=== PATIENT | female | born 1960 | race Two or more races ===

== ENCOUNTER 2018-04-15 07:29 | Day surgery (SDC) | payer BC ==
[2018-04-15] VITALS (8 sets, daily range): BP systolic 103–126; BP diastolic 63–71
[~2018-04-15] VITALS: Ht 165.1 cm; Wt 67.6 kg
[~2018-04-15 07:29] MED LIST: LR 1000ml 1,000 ML IVLG SCH
[2018-04-15] MEDS ORDERED: MULTIVITAMINS1 EAC2 ORAL (08:06)
[2018-04-15] MEDS ORDERED: VITAMIN D1000 UNI1 ORAL (08:06)
[2018-04-15] MEDS ORDERED: LR 1000ml 1,000 ML IVLG SCH (08:10)
--- NOTE | 2018-04-15 08:13 | Anethesia Preoperative Eval ---
Anesthesia Pre-op PMH/ROS General Date of Evaluation: Apr 15, 2018 Time of Evaluation: 08:12 Anesthesiologist: yunior ASA Score: ASA 2 Mallampati Score Class I : Soft palate, uvula, fauces, pillars visible Class II: Soft palate, uvula, fauces visible Class III: Soft palate, base of uvula visible Class IV: Only hard plate visible Mallampati Classification: Class II Surgeon: alvaro Diagnosis: colon screening Surgical Procedure: colonoscopy Anesthesia History: none Family History: no anesthesia problems Allergies: Coded Allergies: MORPHINE (Verified Adverse Reaction, Severe, 04/15/18) shivers/shaking Medications: see eMAR Patient NPO?: Yes Anesthesia Pre-op Phys. Exam Physician Exam Last Vital Signs Date Time Temp Pulse Resp B/P (MAP) Pulse Ox O2 Delivery O2 Flow Rate FiO2 04/15/18 08:07 97.9 66 16 126/71 99 Room Air Constitutional: NAD Neurologic: CN 2-12 intact Cardiovascular: RRR Respiratory: CTA Gastrointestinal: S/NT/ND Airway Exam Mallampati Score: Class II MO: full Neck: flexible TMD: 2fb Teeth: intact Anesthesia Pre-op A/P Risk Assessment & Plan Assessment: asa2 Plan: mac Status Change Before Surgery: No Pre-Antibiotics Drug: Alona Weeks MD Apr 15, 2018 08:13
[2018-04-15] MEDS ORDERED: fentaNYL 100 mcg/2 mL IV PRN (08:15)
[2018-04-15] MEDS ORDERED: Atropine Inj 1mg/10ml Syr IV PRN (08:15)
[2018-04-15] MEDS ORDERED: DiphenhydrAMINE 50mg/ml Inj IVP PRN (08:15)
[2018-04-15] MEDS ORDERED: Midazolam 2mg/2ml Inj IVP PRN (08:15)
--- NOTE | 2018-04-15 08:17 | Pre-Procedure Note/Attestation ---
Pre-Procedure Note/Attestation Complete Prior to Procedure Planned Procedure: not applicable Procedure Narrative: Colonoscopy, possible biopsy, polypectomy, hemostasis, submucosal injection Indications for Procedure Pre-Operative Diagnosis: cancer screening Attestation I attest that I discussed the nature of the procedure; its benefits; risks and complications; and alternatives (and the risks and benefits of such alternatives ), prior to the procedure, with the patient (or the patient's legal customer assistance representative). I attest that, if there was a reasonable possibility of needing a blood transfusion, the patient (or the patient's legal customer assistance representative) was given the [facility] standardized written summary, pursuant to the [place] Blood Safety Act ([place] Health and Safety Code # 1645, as amended). I attest that I re-evaluated the patient just prior to the surgery and that there has been no change in the patient's H&P, except as documented below: Maricarmen Holder MD Apr 15, 2018 08:17
[2018-04-15] MEDS ORDERED: Atropine Sulfate 0.4mg/ml inj ONE (09:00)
[2018-04-15] MEDS ORDERED: LR 1000ml ONE (09:00)
[2018-04-15] MEDS ORDERED: Propofol 200mg/20ml IV ONE (09:00)
[2018-04-15] MEDS ORDERED: Lidocaine 1% MPF 10mg/ml 5ml ONE (09:00)
--- NOTE | 2018-04-15 10:11 | Endoscopy Procedure Note ---
Endoscopy Procedure Note General Procedures Performed: colonoscopy Operative Findings/Diagnosis: polyps x 5, sigmoid diverticula Specimen: yes Pt Tolerated Procedure Well: Yes Estimated Blood Loss: minimal Anesthesia Anesthesiologist: Alona Nunn MD Anesthesia: moderate sedation Medications Medication Given: see anesthesia record Inserted Devices Implant(s) used?: No Quality Quality of Bowel Preparation: Excellent Did scope reach the cecum?: Yes Was there any complications?: No GI Core Measures 50 yrs or older w/o bx or poly: No 10yrs. F/U not recommended: No If not recommended, why?: Above average risk Maricarmen Holder MD Apr 15, 2018 10:11
--- NOTE | 2018-04-15 10:29 | Immediate Post-Op Evaluation ---
Immediate Post-Op Evalulation Immediate Post-Op Evalulation Procedure: colonoscopy w/ bx Date of Evaluation: Apr 15, 2018 Time of Evaluation: 10:27 IV Fluids: 400ml lr Blood Products: none Estimated Blood Loss: negligible Blood Pressure Systolic: 105 Blood Pressure Diastolic: 63 Pulse Rate: 71 Respiratory Rate: 18 O2 Sat by Pulse Oximetry: 100 Temperature (Fahrenheit): 97.8 Pain Score (1-10): 0 Nausea: No Vomiting: No Complications none Patient Status: awake, reacts, patent Hydration Status: adequate Drug: Alona Weeks MD Apr 15, 2018 10:29
--- NOTE | 2018-04-15 10:32 | 48 Hour Post Anesthesia Eval ---
Post Anesthesia Evaluation Procedure: colonoscopy w/ bx Date of Evaluation: Apr 15, 2018 Time of Evaluation: 10:29 Blood Pressure Systolic: 110 0: 65 Pulse Rate: 68 Respiratory Rate: 18 Temperature (Fahrenheit): 97.8 O2 Sat by Pulse Oximetry: 100 Airway: patent Nausea: No Vomiting: No Pain Intensity: 0 Hydration Status: adequate Cardiopulmonary Status: stable Mental Status/LOC: patient returned to baseline Post-Anesthesia Complications: none Follow-up care needed: N/A Alona Pena MD Apr 15, 2018 10:32
--- NOTE | 2018-04-15 16:00 | Operative Note - Dictated ---
DATE OF OPERATION: 04/15/2018 PREPROCEDURE DIAGNOSIS: Cancer screening. POSTPROCEDURE DIAGNOSES: Polyps x5 (sigmoid diverticula) and internal hemorrhoids. PROCEDURE: Colonoscopy with cold forceps biopsy. SURGEON: Maricarmen Holder M.D. ANESTHESIOLOGIST: Alona Pena M.D. ANESTHESIA: Propofol sedation. INDICATIONS FOR PROCEDURE: The patient is a 57-year-old female, who was sent to my office by her physician Dr. Marisa Hu, for colorectal surgical evaluation and for first time colonoscopy. The patient had never had a colonoscopy and then in light of her age, it was determined at this time to proceed with the first time colonoscopy. DESCRIPTION OF PROCEDURE: Upon consent of the patient, the patient brought to the procedure room and placed in left lateral decubitus position. Once adequate sedation was established with propofol drip, digital rectal exam was performed, which showed some mild internal hemorrhoids. The Olympus colonoscope was advanced through the anus into the rectum. The descending colon, splenic flexure, transverse colon, hepatic flexure, and ascending colon were visualized. The cecum was easily reached and the ileocecal valve and appendiceal orifice were identified. The patient's prep was noted to be good. The terminal ileum was intubated and was noted to be normal. The colonoscope was slowly withdrawn. There was noted to be five benign-appearing polyps in the transverse colon x2 and also in the sigmoid colon x3. These were all removed with cold forceps and were sent off the field as separate specimens. The postpolypectomy sites were noted to have no active bleeding. Upon reaching the sigmoid colon, there was noted to be a sigmoid diverticula, which was not acutely inflamed. Upon reaching the rectum, the colonoscope was retroflexed and noted to be mild internal hemorrhoids. The scope was straightened, air was evacuated from the rectum, the colonoscope was removed. The patient was awakened from anesthesia and brought to postanesthesia recovery room in stable condition. IMPRESSION: Polyps x5, sigmoid diverticula, internal hemorrhoids. PLAN: Repeat colonoscopy in three years, continue high-fiber diet, yearly followup. Maricarmen Holder M.D. DR: ARY JOB#: [id number] CC: Maricarmen Holder M.D.; Fax#: [phone] Prema Li M.D.
== END 2018-04-15 11:20 | disposition home or self-care (01) ==
LOC: GAS 07:29
DX: Z12.11 Encounter for screening for malignant neoplasm of colon (principal); K63.5 Polyp of colon; K57.30 Diverticulosis of large intestine without perforation or abscess without bleeding; K64.8 Other hemorrhoids; Z88.5 Allergy status to narcotic agent
CPT/HCPCS: 45380; J0461; J2704; 94003; 94150